=== PATIENT | female | born 1990 | race Caucasian/White ===

== ENCOUNTER 2021-01-25 08:10 | Outpatient (CLI) | payer BC | END 2021-01-25 08:11 | disposition home or self-care (01) | LOC: BICULT 08:10 | PROVIDERS: ATTEND Student in an Organized Health Care Education/Training Program | DX: R74.01 Elevation of levels of liver transaminase levels (principal); K76.0 Fatty (change of) liver, not elsewhere classified | CPT/HCPCS: 76705 ==

== ENCOUNTER 2023-10-17 14:28 | Outpatient (CLI) | payer BC | END 2023-10-17 14:29 | disposition home or self-care (01) | LOC: SCSRAD 14:28 | PROVIDERS: ATTEND Family Medicine | DX: Z00.00 Encounter for general adult medical examination without abnormal findings (principal) | CPT/HCPCS: 74018 ==